=== PATIENT | male | born 1990 | race Caucasian/White ===

== ENCOUNTER 2024-11-19 16:45 | Emergency (ER) | payer BC, SELFPAY ==
--- OUTSIDE RECORDS SUMMARY | 2024-11-19 16:48 | XMS_ITS | Clinical Summary ---
Author Organization [facility] Address [address] [place] [address] Care Team Providers Care Payroll Assistant Name Role Phone No, Physician Primary Care Provider [phone] Allergies Active Allergy Reactions Criticality Noted Date Comments Fentanyl Swelling,Nausea & Vomiting Medium [address] (PROTONIX) 40 mg EC tablet Take 1 tablet (40 mg total) by mouth daily 30 tablet 9 Active naproxen (NAPROSYN) 500 mg tabletIndicati ons:Cellulitis of right foot,[place] of foot Take 1 tablet (500 mg total) by mouth 2 (two) times a day with meals P.r.n. pain and swelling. Collaborating physician Anthony Blackwell MD 20 tablet 4 Active mupirocin (BACTROBAN) 2 % ointment Apply topically 2 (two) times a day Apply to wound on right foot twice daily with each dressing change. Collaborating physician Anthony Blackwell MD 22 g 1 4 Active Active Problems Problem Noted Date Diagnosed Date Cellulitis of right foot 12/01/2023 [place] of foot 12/01/2023 Social History Tobacco Use Types Packs/Day Years Used Date Smoking Tobacco: Never Assessed Personal Safety Answer Date Recorded Have you ever been in or are you currently in a harmful physical or emotional relationship or is someone making you feel afraid or unsafe? 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 Gender Identity Not on file Sexual Orientation Not on file Obstetrics History Last Filed Vital Signs Vital Sign Reading Time Taken Comments Blood Pressure 117/63 12/01/2023 11:58 AM CDT Pulse 85 12/01/2023 11:58 AM CDT Temperature 36.8 C (98.2 F) 12/01/2023 11:58 AM CDT Respiratory Rate 14 12/01/2023 11:58 AM CDT Oxygen Saturation 97% 12/01/2023 11:58 AM CDT Inhaled Oxygen Concentration - - Weight 77.1 kg (170 lb) 12/01/2023 9:23 AM CDT Height 177.8 cm (5' 10 ) 12/01/2023 9:23 AM CDT Body Mass Index 24.39 12/01/2023 9:23 AM CDT Plan of Treatment Health Maintenance Due Date Last Done Comments Depression Screening 1989 Hepatitis C Screening 1989 DTaP/Tdap/Td Vaccine (5 - Tdap) 2005 04/11/2005, 03/28/2003, 04/21/1995, Additional history exists Regular Well Visit/Exam 18-64 2007 Influenza Vaccine (#1) 2024 Varicella Vaccines Completed 11/24/2002, 09/10/2002 Hepatitis B Screening Completed 03/28/2003 , 11/24/2002, 09/10/2002 HPV Vaccines Aged Out No longer eligi ble based on patient's age to complete this topic Pneumococcal vaccine <65 Aged Out No longer eligible based on patient's age to complete this [place] [address] [place] [address] IDPA [facility] Care Teams Payroll Assistant Relationship Specialty Start Date End Date No, Physician PCP - General 01/29/19
--- OUTSIDE RECORDS SUMMARY | 2024-11-19 16:48 | XMS_ITS | Referral Summary ---
Author Organization [facility] Address [address] [place] [address] Care Team Providers Care Brick Tender Name Role Phone No, Physician Primary Care Provider [phone] Allergies Active Allergy Reactions Criticality Noted Date Comments Fentanyl Swelling,Nausea & Vomiting Medium [address]ill[address] Medications pantop[address] (PROTONIX) 40 mg EC tablet Take 1 tablet (40 mg total) by mouth daily 30 tablet 9 Active naproxen (NAPROSYN) 500 mg tabletIndicati ons:Cellulitis of right foot,[place] of foot Take 1 tablet (500 mg [...] Diagnosed Date Cellulitis of right foot 12/01/2023 [place] of foot 12/01/2023 Social History Tobacco Use [...] on file 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
--- OUTSIDE RECORDS SUMMARY | 2024-11-19 16:48 | XMS_ITS | Continuity of Care Document ---
Author Organization [facility] Address [address] [place] [address] [place] [address] Phone Care Team Providers Care Residential Designer Name Role Phone Néstor Kendrick MD Unavailable Unavailable Allergies, Adverse Reactions, Alerts Substance Reaction Status Criticality PENICILLIN Active No Information Medications Medication Instructions Dosage Effective Dates (start - stop) Status Comments Vistaril 50 mg capsule take 1 capsule by oral route every 6 hours as needed 50 MG - Active PRN for anxiety. avoid driving or oeprate machines Procedures Procedure Date PREV VISIT, NEW, AGE 18-39 Advance Directives Directive Yes / No Effective Date File Name No Information Encounters Encounter Description Practice Location Reason(s) For Visit Diagnoses Date Provider Providers Copied on Encounter PREV VISIT, NEW, AGE 18-39 [facility], [address] [place], [place], [id number], [place] tel:[phone] [facility] PHysical (chief complaint) Encntr for general adult medical exam w/o abnormal findings Aroldo Palm. [address] [place], [place], [id number], [place]. tel:[phone] Referring Provider: Néstor Kendrick, [address] [place], [place], [id number]. tel:[phone] Family History Family Member Type Diagnosis Age At Onset Mother Problem (finding) Depression Father Problem (finding) Diabetes mellitus type 2 Brother Problem (finding) Alive and well Payers Payer name Insurance type Covered libertarian ID Authoriza tion(s) No Information Social History Type Description Quantity Date Captured Comments Alcohol Use Details Caffeine Use Details Unknown Tobacco Use Status Cigarette smoker Smoking Status Current every day smoker Non-Smoking Tobacco Use Details : No Details Available : No Details Available Sex Male Vital Signs Date / Time: Height Weight BMI Pulse Rate Blood Pressure Temperature Respiratory Rate Body Surface Area Head Circumference BMI percentile Pulse Ox Inhaled Ox 2:21 PM 70.00 in 164.00 lbs 23.5 3 kg/m eter (2) 80 /min 126/67 mm[Hg] 98.1 F 18 /min Chief Complaint And Reason For Visit From encounter dated '04/08/2016 13:15'. PHysical (chief complaint). Description: Pt needs annual physical. Pt does not take medication. Pt states that he has panic attacks intermittently. pt denies any depression or any suicdial thought. Pt states that he has panic attacks 1-2 per week Pt denies any other complaints Plan Of Treatment Date Type Action Status No Information History Of Present Illness Encounter Date Complaint History Of Prese nt Illness PHysical Pt needs annual physical. Pt does not take medication. Pt states that he has panic attacks intermittently. pt denies any depression or any suicdial thought. Pt states that he has panic attacks 1-2 per week Pt denies any other complaints Instructions Date Instruction Additional Infor mation No Information Assessments Type Assessment Date assessment Encntr for general adult medical exam w/o abnormal findings Mental Status Date Cognitive Assessment Orientation - [place] ed to time, place, person, situation.
[2024-11-19 16:50] VITALS: BP 152/84; PULSE 110; RESP 20; TEMP 36.6; O2SAT 97
--- NOTE | 2024-11-19 16:50 | ED.URI ---
HPI - URI/Sore Throat General Chief Complaint: Upper Respiratory Infection Stated Complaint: Chest Burning/Fever Time Seen by Provider: 11/19/24 17:01 Source: patient, RN notes reviewed and old records reviewed Mode of arrival: ambulatory Limitations: no limitations History of Present Illness HPI Narrative: 34-year-old male presents to the [facility] with fatigue, congestion, sinus pain, pressure. Reports that he felt feverish yesterday. Patient denies taking any cough/ cold medicine. States that he did smoke weed to try to make himself feel better. Patient requesting a work note Onset (ago): day(s) (1) Treatments prior to arrival: none Related Data Allergies Allergy/AdvReac Type Severity Reaction Status Date / Time Penicillins Allergy Severe Dyspnea / Verified 11/19/24 16:57 SOB Review of Systems Review of Systems: All systems reviewed & are unremarkable except as noted in HPI and below Constitutional: Constitutional: Reports as per HPI, Reports body ache(s), Reports fatigue and Reports fever(s) ENT: Reports as per HPI and Reports sinus pressure Cardiovascular: Cardiovascular: Reports no additional cardiovascular complaints, Denies chest pain and Denies dyspnea Respiratory: Respiratory: Reports no additional respiratory complaints, Denies chest congestion, Denies cough and Denies dyspnea Musculoskeletal: Musculoskeletal: Reports no additional musculoskeletal complaints Integumentary/Breasts: Skin/Breast: Reports system reviewed and no additional complaints, except as docu PMFSH Comments At the time of my signature, I reviewed and agree with the nursing past medical, surgical, social, and family history. There is no relevant family history pertinent to the patient complaint. Exam Const: General: cooperative, no acute distress, well developed, alert, uncomfortable and well nourished Nutritional Appearance: well nourished Orientation/consciousness: patient oriented x3 Limitations: no limitations HENMT: Head: normal to inspection Ears: hearing grossly normal bilaterally, external ears normal, TM's normal bilaterally, EAC's normal, mastoids normal and no periauricular adenopathy Face/Nose/Sinus: Normal external nose present and No nasal discharge present Face and sinus: normal facial exam, sinuses nontender and face symmetric Mouth: Yes Normal oral and palatal mucosa present, Yes lip normal, Yes tongue normal and Yes moist mucous membranes Throat: posterior oropharynx normal, uvula midline, postnasal drainage and no uvular edema Eyes: General: appearance normal, both eyes and all related structures Alignment and Position: alignment normal Neck: Neck: normal visual inspection, full ROM, no lymphadenopathy and no meningeal signs Chest: Chest palpation & inspection: normal inspection of the chest Resp: Effort & Inspection: normal respiratory effort and able to speak in complete sentences Auscultation: clear to auscultation bilaterally, no crackles, no rales, no rhonchi and no wheezes Cardio: Rate: regular rate Skin: General skin exam: normal color and no rashes or lesions noted Neuro: General: patient oriented x3, gait normal, moves all extremities and no meningeal signs Cognition (Neuro): normal cognition Speech: normal speech Gait exam (Neuro): Normal gait present Extrem: General: normal to inspection, full ROM, capillary refill normal and normal gait Psych: Appearance: grossly normal and well kempt Mental Status: mental status grossly normal Speech and movement: Normal speech and movement present and Clear speech present Affect: normal affect Attitude: cooperative Course Course Level of Care: Express Care Visit Vital Signs Vital signs: Vital Signs Temperature 98 F 11/19/24 16:50 Pulse Rate 110 H 11/19/24 16:50 Respiratory Rate 20 11/19/24 16:50 Blood Pressure 152/84 H 11/19/24 16:50 Pulse Oximetry 97 11/19/24 16:50 Oxygen Delivery Room Air 11/19/24 16:50 Temperature 98 F 11/19/24 16:50 Pulse Rate 110 H 11/19/24 16:50 Respiratory Rate 20 11/19/24 16:50 Blood Pressure 152/84 H 11/19/24 16:50 Pulse Oximetry 97 11/19/24 16:50 Oxygen Delivery Room Air 11/19/24 16:50 Reviewed MDM - URI/Sore Throat MDM Narrative Medical decision making narrative: Patient sitting in exam room. Nontoxic, blood pressure is elevated, pulse is elevated. Patient presents with concerns of having the flu. States that is job sent time and is requiring a work note. Patient reports with URI symptoms since yesterday, no treatment prior to arrival. Offer chest x-ray, patient declined. Stating I am only here because my work made me. ? Flu and COVID tests in clinic are negative. Patient appropriate for outpatient treatment with close follow-up Differential Diagnosis Differential diagnosis: Likely upper respiratory infection, otitis media, sinusitis, viral infection, bronchitis, influenza and pharyngitis Lab Data Labs: Lab Results 11/19/24 Range/Units 17:04 POC Influenza A Ag Negative (Negative) POC Influenza B Ag Negative (Negative) POC SARS CoV-2 Ag Negative (Negative) Reviewed Critical Care Time Critical Care Time Critical Care Time: No Discharge Plan Discharge Clinical Impression: Upper respiratory infection Qualifiers: URI type: unspecified viral URI Qualified Code(s): J06.9 - Acute upper respiratory infection, unspecified Patient Disposition: Home Condition: Stable Instructions: Antibiotic Form, Upper Respiratory Infection (ED) Additional Instructions: Today your blood pressure was 152/84. We recommend you follow-up with your primary care provider within the next 2 weeks to have this rechecked. Untreated or undertreated blood pressure can lead to more serious health issues Your rapid COVID test were negative Your rapid flu test was negative Your symptoms are likely due to a viral illness, which is not treated with antibiotics. Typically viral infections last 7-10 days, can linger for couple of weeks. It is very important to treat your symptoms. Drink plenty of water, Gatorade, Pedialyte, ice pops or Jell-O. -Alternate Tylenol and Motrin per package directions for fever or pain. You can alternate every 4 hours -Antihistamine medication such as Zyrtec/Claritin/Guerita during the day can help improve symptoms. -doing daily nasal irrigations can help relieve pressure your sinuses. Things like a Neti pot -Use Flonase twice a day for 5 days then daily to help reduce the inflammation and dry up your sinuses. -You can also use Mucinex. Be sure to drink plenty of water with this medication at least 8 ounces with every dose and it is important to drink 8 to 10 glasses of water per day. Water is a natural decongestant -Eat and drink things that are easy to swallow, like tea or soup, or popsicles. -Oral rinses such as: Salt water gargles and/or may use topical anesthetic (eg. Chloraseptic spray) or lozenges to relieve dryness or throat pain). -Frequent hand washing or hand ships equipment engineer is one of the best ways to prevent spread of infection. -Using a vaporizer or humidifier at night will also help thin secretions and help with coughing up phlegm. -Follow up with primary care provider in 7-10 days if condition is not improving - For new or worsening symptoms go directly to the nearest ER Patient Language: Syrian Follow-up/Referrals: PHYSICIAN,OFFICE BOOKKEEPER [Primary Care Provider] - Stand Alone Forms: Work/School Release IP Time of Disposition: 17:10
--- OUTSIDE RECORDS SUMMARY | 2024-11-19 16:52 | XMS_ITS | Continuity of Care Document ---
Author Organization [facility] Address [address] [place] [address] [place] [address] Phone Care Team Providers Care Sociocultural Anthropology Professor Name Role Phone Néstor Kendrick MD Unavailable [...] on Encounter PREV VISIT, NEW, AGE 18-39 [facility], [address] [place], [place], [id number], [place] tel:[phone] [facility] PHysical (chief complaint) Encntr for general adult medical exam w/o abnormal findings Aroldo Palm. [address], [place], [id number], [place]. tel:[phone] Referring Provider: Néstor Kendrick, [address] [place], [id number]. tel:[phone] Family History Family Member Type Diagnosis Age At Onset Mother Problem (finding) Depression Father Problem (finding) Diabetes mellitus type 2 Brother Problem (finding) Alive and well Payers Payer name Insurance type Covered constitution party ID Authoriza tion(s) No Information Social History [...] Mental Status Date Cognitive Assessment Orientation - [place] ed to time, place, person, situation.
[2024-11-19 17:11] LABS: EDCOVIDSCREEN Negative (Negative); EDINFLUASCREEN Negative (Negative); EDINFLUBSCREEN Negative (Negative)
== END 2024-11-19 17:14 | disposition home or self-care (01) ==
PROVIDERS: Emergency Provider Nurse Practitioner
DX: J06.9 Acute upper respiratory infection, unspecified (principal); Z20.822 Contact with and (suspected) exposure to COVID-19; F12.90 Cannabis use, unspecified, uncomplicated
CPT/HCPCS: 87426; 87804; 99212; G0463

== ENCOUNTER 2024-11-24 16:06 | Emergency (ER) | payer BC, SELFPAY ==
[2024-11-24 16:12] VITALS: BP 130/100; PULSE 106; RESP 18; TEMP 36.8; O2SAT 98
[2024-11-24] MEDS: metroNIDAZOLE 500 MG TABLET PO (16:44)
[2024-11-24] MEDS: LIDOCAINE 1% LOCAL INJ 10 ML VIAL INFILTRATE (16:44)
[2024-11-24] MEDS: DOXYCYCLINE HYCLATE 100 MG TABLET PO (16:44)
--- NOTE | 2024-11-24 16:45 | ED.ANIMALBIT ---
HPI - Animal Bite General Chief Complaint: Animal Bite Stated Complaint: Dog bite to left side of mouth-+vaccinations Time Seen by Provider: 11/24/24 16:18 History of Present Illness HPI narrative: 34-year-old male presents to emergency department for a dog bite to his face that occurred yesterday at 9:30 p.m.. Patient states his pain is friend's dog when his spread but him in the face. States the dog is up-to-date on rabies vaccines. The patient states his last tetanus was approximately 3 years ago. He states he has had some intermittent bleeding out of the laceration to his left upper lip. He presents with a couple puncture wounds to the chin. He denies fever or purulent drainage. Related Data Allergies Allergy/AdvReac Type Severity Reaction Status Date / Time Penicillins Allergy Severe Dyspnea / Verified 11/24/24 16:07 SOB Review of Systems Review of Systems: All systems reviewed & are unremarkable except as noted in HPI and below Exam Narrative: GENERAL: Well-appearing, well-nourished, and in no acute distress. HEAD: Normocephalic, atraumatic. EYES: EOMI. ENT: Nares clear, no rhinorrhea or epistaxis. Mucous membranes moist. No through and through lacerations in the intra oral cavity or loops. There are superficial abrasions to the left upper inner lip and left lower lip with small area of ecchymosis to the left inner lip. NECK: Supple. CHEST: Clear to auscultation. No respiratory distress. HEART: Regular rate and rhythm. No murmur heard. Normal peripheral pulses. EXTREMITIES: Normal range of motion. No edema. SKIN: <1cm irregular laceration to the left upper lift, superior to the vermilion border with no deep structures or foreign bodies visualized, laceration is not through and through. Three puncture wounds noted to the chin, which are 3 3. No active bleeding, there is overlying scabbing. No surrounding erythema, fluctuation or induration to any of the wounds NEURO: No focal deficits. Alert and oriented x3 Course Vital Signs Vital signs: Vital Signs Temperature 98.2 F 11/24/24 16:12 Pulse Rate 106 H 11/24/24 16:12 Respiratory Rate 18 11/24/24 16:12 Blood Pressure 130/100 H 11/24/24 16:12 Pulse Oximetry 98 11/24/24 16:12 Temperature 97.9 F 11/24/24 17:53 Pulse Rate 84 11/24/24 17:53 Respiratory Rate 16 11/24/24 17:53 Blood Pressure 132/76 11/24/24 17:53 Pulse Oximetry 100 11/24/24 17:53 Procedures Laceration Laceration 1: Date: 11/24/24 Time: 17:46 Site: face Side (If applicable): left Size (cm): 1 Description: irregular Depth: simple, single layer Local Anesthetic: lidocaine 1% Amount of anesthesia used (mL): 3 Pre-repair: wound explored, irrigated and irrigated extensively ====== Skin Level ====== Skin layer closed with: nylon Size (cm): 6-0 Number of sutures: 2 Technique: simple, interrupted ====== Subcutaneous Layer ====== ====== Muscle Layer ====== ====== Tendon Layer ====== MDM - Animal Bite MDM Narrative Medical decision making narrative: 34-year-old male presents emergency department for puncture wounds to his chin in a left upper lip laceration that occurred from a dog bite head yesterday at 9:30 p.m.. A dog was known to the patient and is up-to-date on rabies vaccines. Patient states he is up-to-date on his tetanus. Vitals with mild tachycardia 106 and elevated blood pressure. Patient is afebrile and nontoxic appearing. Exam is significant for the above. Notably there are 3 small puncture wounds with overlying scabs to the chin with no through and through wounds, no secondary signs of infection. There is a 1 cm irregular laceration to the left upper lip superior to the vermilion border that is not through and through with no evidence of deep structures or foreign bodies. Shared decision making regarding closure of the left upper lip laceration. Discussed cosmetic benefits of primary closure versus risks of infection with primary closure versus benefits/risks of secondary closure. Patient is requesting sutures for cosmetic repair. I did discuss he is at increased risk of secondary infection and he understand these risks and would still like to move forward with primary closure. Feel this is very given laceration is to the face and within 24 hours. Two sutures replaced without complications with loose approximation. Patient has a penicillin allergy and was therefore started on doxycycline and Flagyl for empiric dog bite. He was advised of his sutures removed in 7 days and was given strict ED return precautions. He is agreeable with the plan verbalized understanding. Discharged in stable condition. Discharge Plan Discharge Clinical Impression: Dog bite Qualifiers: Encounter type: initial encounter Qualified Code(s): W54.0XXA - Bitten by dog, initial encounter Patient Disposition: Home Condition: Stable Instructions: Antibiotic Form, Animal Bite (ED) Additional Instructions: You had 2 stitches placed in your your upper left lip. Please get these removed in 7 days. Take the antibiotics as directed. Return to the emergency department if you develop a fever over 100.4 or greater, surrounding redness or drainage, or other concerning symptoms. Patient Language: Turkmen Prescriptions: New metronidazole 500 mg tablet 500 mg PO Q12H Qty: 14 0RF doxycycline hyclate 100 mg capsule 100 mg PO BID Qty: 14 0RF Follow-up/Referrals: PHYSICIAN,USER SUPPORT ANALYST SUPERVISOR [Non-Staff] - Vinnie Flores MD [Physician] -
--- OUTSIDE RECORDS SUMMARY | 2024-11-24 16:53 | XMS_ITS | Clinical Summary ---
Author Organization [facility] Address [address] [place] [address] Care Team Providers Care Internal Medicine Specialist Name Role Phone No, Physician Primary Care Provider [phone] Allergies Active Allergy Reactions Criticality Noted Date Comments Fentanyl Swelling,Nausea & Vomiting Medium [address] (PROTONIX) 40 mg EC tablet Take 1 tablet (40 mg total) by mouth daily 30 tablet 9 Active naproxen (NAPROSYN) 500 mg tabletIndicati ons:Cellulitis of right foot,[place] of foot Take 1 tablet (500 mg [...] Diagnosed Date Cellulitis of right foot 12/01/2023 [place] of foot 12/01/2023 Social History Tobacco Use [...] on file 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
--- OUTSIDE RECORDS SUMMARY | 2024-11-24 16:53 | XMS_ITS | Referral Summary ---
Author Organization [facility] Address [address] [place] [address] Care Team Providers Care Canvas Cutter Hand Name Role Phone No, Physician Primary Care Provider [phone] Allergies Active Allergy Reactions Criticality Noted Date Comments Fentanyl Swelling,Nausea & Vomiting Medium [address] (PROTONIX) 40 mg EC tablet Take 1 tablet (40 mg total) by mouth daily 30 tablet 9 Active naproxen (NAPROSYN) 500 mg tabletIndicati ons:Cellulitis of right foot,[place] of foot Take 1 tablet (500 mg [...] Diagnosed Date Cellulitis of right foot 12/01/2023 [place] of foot 12/01/2023 Social History Tobacco Use [...] on file 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
--- OUTSIDE RECORDS SUMMARY | 2024-11-24 16:53 | XMS_ITS | Continuity of Care Document ---
Author Organization [facility] Address [address] [place] [address] [place] [address] Phone Care Team Providers Care Rn Medical Surgical Name Role Phone Néstor Kendrick MD Unavailable [...] on Encounter PREV VISIT, NEW, AGE 18-39 [facility], [address] [place], [place], [id number], [place] tel:[phone] [facility] Medicine PHysical (chief complaint) Encntr for general adult medical exam w/o abnormal findings Aroldo Palm. [address], [place], [id number], [place]. tel:[phone] Referring Provider: Néstor Kendrick, [address], [place], [id number]. tel:[phone] Family History Family Member Type Diagnosis Age At Onset Mother Problem (finding) Depression Father Problem (finding) Diabetes mellitus type 2 Brother Problem (finding) Alive and well Payers Payer name Insurance type Covered democrat ID Authoriza tion(s) No Information Social History [...] Mental Status Date Cognitive Assessment Orientation - [place] ed to time, place, person, situation.
--- OUTSIDE RECORDS SUMMARY | 2024-11-24 17:28 | XMS_ITS | Referral Summary ---
Author Organization [facility] Address [address] [place] [address] Care Team Providers Care Retail Chain Store Area Supervisor Name Role Phone No, Physician Primary Care Provider Allergies Active Allergy Reactions Criticality Noted Date Comments Fentanyl Swelling,Nausea & Vomiting Medium [address] (PROTONIX) 40 mg EC tablet Take 1 tablet (40 mg total) by mouth daily 30 tablet 9 Active naproxen (NAPROSYN) 500 mg tabletIndicati ons:Cellulitis of right foot,Soper of foot Take 1 tablet (500 mg [...] Diagnosed Date Cellulitis of right foot 12/01/2023 Soper of foot 12/01/2023 Social History Tobacco Use [...] on file 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
--- OUTSIDE RECORDS SUMMARY | 2024-11-24 17:28 | XMS_ITS | Clinical Summary ---
Author Organization [facility] Address [address] [place] [address] Care Team Providers Care Recruit Instructor Name Role Phone No, Physician Primary Care Provider [phone] Allergies Active Allergy Reactions Criticality Noted Date Comments Fentanyl Swelling,Nausea & Vomiting Medium [address] pant[address] (PROTONIX) 40 mg EC tablet Take 1 tablet (40 mg total) by mouth daily 30 tablet 9 Active naproxen (NAPROSYN) 500 mg tabletIndicati ons:Cellulitis of right foot,Erwin of foot Take 1 tablet (500 mg [...] Diagnosed Date Cellulitis of right foot 12/01/2023 Erwin of foot 12/01/2023 Social History Tobacco Use [...] on file 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
--- OUTSIDE RECORDS SUMMARY | 2024-11-24 17:28 | XMS_ITS | Continuity of Care Document ---
Author Organization [facility] Address [address] [place] [address] [place] [address] Phone Care Team Providers Care Set Up And Charger Name Role Phone Néstor Kendrick MD Unavailable [...] on Encounter PREV VISIT, NEW, AGE 18-39 [facility], [address] [place], [place], [id number], [place] tel:[phone] [facility] Medicine PHysical (chief complaint) Encntr for general adult medical exam w/o abnormal findings Aroldo Palm. [email or web address], [id number], [place]. tel:[phone] Referring Provider: Néstor Kendrick, [address], [place], [id number]. tel:[phone] Family History Family Member Type Diagnosis Age [...] Mental Status Date Cognitive Assessment Orientation - [place] ed to time, place, person, situation.
[2024-11-24 17:53] VITALS: BP 132/76; PULSE 84; RESP 16; TEMP 36.6; O2SAT 100
== END 2024-11-24 17:54 | disposition home or self-care (01) ==
PROVIDERS: Emergency Provider Physician Assistant
DX: S01.85XA Open bite of other part of head, initial encounter (principal); S01.551A Open bite of lip, initial encounter; W54.0XXA Bitten by dog, initial encounter
CPT/HCPCS: 12011; 99283; A9270; J2003